=== PATIENT | male | born 1965 | race Caucasian/White ===

== ENCOUNTER 2023-07-05 08:04 | Outpatient (CLI) | payer OTHER, SELFPAY ==
--- OUTSIDE RECORDS SUMMARY | 2023-07-06 06:48 | XMS_ITS | Clinical Summary ---
Author Name Unknown Organization [facility] Address [address] [place] [address] Care Team Providers Care Director Of Customer Acquisition Name Role Phone Found, No Pcp MD Primary Care Provider Unavailab le Source Comments You are receiving this document as you are listed as the primary care provider,follow-up provider, or the patient has been referred to you for consultation.This is in compliance with the Medicare and[facility] EHR Incentive Program,which states Providers who transition their patient to another setting of careor provider of care or refers their patient to another provider of care shouldprovide summary care record for each transition of care or referral. thesweetlink Allergies Active Allergy Reactions Criticality Noted Date Comments Adhesive Other, see comments 07/24/2016 Blisters Medications Medication Sig Dispensed Refills Start Date End Date Status unknown medication Indications: PN: 0 07/18/2009 Active unknown medication Indications: PN: 0 07/31/2009 Active acetaminophen (TYLENOL) 500 MG tabletIndications:P ain Take 2 Tabs by mouth three times a day. Maximum acetaminophen dose is 4000 mg in 24 hours Indications: Pain 100 Tab 2 07/25/2016 Active Additional Information Patient not taking.Reported on 10/26/2016 sennosides-docusate sodium (SENNA-S,SENNA PLUS) 8.6-50 MG per tabletIndications:C onstipation Take 1 Tab by mouth two times a day. Indications: Constipation 90 Tab 0 07/25/2016 Active Additional Information Patient not taking.Reported on 10/26/2016 Active Problems Problem Noted Date Diagnosed Date Closed displaced fracture of shaft of right clav icle 07/22/2016 Resolved Problems Problem Noted Date Diagnosed Date Resolved Date CAREPLAN: [facility] 08/11/2016 09/14/2016 Overview: Background: Engaged in Complex Case Management: Khalida Patel RN, BAN [phone] Goals/Recommendations: Immunizations Name Administration Dates Next Due HepA Adult (19+ yrs) 04/14/2007,10/19/2006 HepB Adult (Engerix-B, 20+ y rs, 3 dose series) 04/14/2007,11/23/2006,10/19/2006 Influenza, Unspecified Formulation 05/17/2013 Td (7+ yrs) 07/12/1997 Tdap 10/19/2006 Family History Medical History Relation Name Comments COPD Father Other Father CHF/MM Cataract Mother Relation Name Status Comments Father Alive Mother Alive Social History Tobacco Use Types Packs/Day Years Used Date Smoking Tobacco: Never Smokeless Tobacco: Never Alcohol Use Standard Drinks/Week Comments Yes 3 (1 standard drink = 0.6 oz pur e alcohol) Sex and Gender Information Value Date Recorded Sex Assigned at Not on file Gender Identity Not on file Sexual Orientation Not on file Last Filed Vital Signs Vital Sign Reading Time Taken Comments Blood Pressure 144/95 05/09/2018 9:13 AM EMERGENCY MEDICINE notified pt and MD about BP Pulse 78 05/09/2018 9:13 AM EMERGENCY MEDICINE Temperature 36.6 ??C (97.8 ??F) 07/25/2016 1 0:00 AM EMERGENCY MEDICINE Respiratory Rate 16 07/25/2016 10:0 0 AM EMERGENCY MEDICINE Oxygen Saturation 95% 07/25/2016 10: 00 AM EMERGENCY MEDICINE Inhaled Oxygen Concentration - - Weight 88.5 kg (195 lb) 08/31/2016 4:35 PM CDT Height 165.1 cm (5' 5) 08/31/2016 4:35 PM CDT Body Mass Index 32.45 08/31/2016 4:35 PM CDT Plan of Treatment Health Maintenance Due Date Last Done Comments Colon Cancer Screening Plan Due 1966 Hep C Screening (Preventive Services) 1966 PSA Screening Discussion 1966 COVID-19 Vaccine (#1) 1966 HIV Screening (Preventive Services) 1982 Adult Preventive Visit 1984 Cholesterol 2001 HepA (3 of 3 - Hep A Twinrix risk 3-dose series) 09/13/2007 04/14/2007, 04/14/2007, 10/19/2006, Additional history exists Zoster/Shingles (1 of 2) 2016 Influenza (#1) 2023 02/26/2020, /02/2017, 05/17/2013, Additional history exists DTaP/Tdap/Td (3 - Tdap) 10/13/2028 10/14/19 19, 10/19/2006, 07/12/1997 HepB Completed 04/14/2007, 11/12, 10/19/2006 Hib Aged Out No longer eligi ble based on patient's age to complete this topic IPV (Polio) Aged Out No longer eligi ble based on patient's age to complete this topic MCV4 Aged Out No longer eligi ble based on patient's age to complete this topic Pneumococcal Aged Out No longer eligi ble based on patient's age to complete this topic Medical Devices Implanted Type Area Political Science Faculty Member Device Identifier Shelf Expiration Date Model / Serial / Lot Bone Dbx Putty 1cc - [id number] Implanted:Qt y: 1 on 07/23/2016 by Jostin Tinoco MD at [facility] [employer] Right: SCAPULA Musculoskeletal [employer] Fnd 02/18/2018 [id number] / [id number] / Korin Variax Clavicle Decreased Curvature Plate Implanted:Qt y: 1 on 07/23/2016 by Jostin Tinoco MD at [facility] DEV[employer] Right: CLAVICLE [employer] [id number] / / Scr Lk Sftp T8 2.4x7 - [id number] Implanted:Qt y: 2 on 07/23/2016 by Jostin Tinoco MD at [facility] [employer] Right: SCAPULA J[employer]J DePuy Synthes - Trauma 212.807 / / Scr Lk Sftp T8 2.4x8 - [id number] Implanted:Qt y: 2 on 07/23/2016 by Jostin Tinoco MD at [facility] DEV[employer] Right: SCAPULA DePuy Synthes - Trauma 212.808 / / Scr Lk Sftp T8 2.7x10 - [id number] Implanted:Qt y: 2 on 07/23/2016 by Jostin Tinoco MD at [facility] [employer] J[employer]J DePuy Synthes - Trauma 202.210 / / Plt Lcp 2.0x52 7h - [id number] Implanted:Qt y: 1 on 07/23/2016 by Jostin Tinoco MD at [facility] [employer] J[employer]J DePuy Synthes - Trauma 247.347 / / Scr Bone T10 2.7x22 - [id number] Implanted:Qt y: 1 on 07/23/2016 by Jostin Tinoco MD at [facility] DEV[employer] Right: CLAVICLE [employer] [id number] / / Scr Bone T10 3.5x14 - [id number] Implanted:Qt y: 1 on 07/23/2016 by Jostin Tinoco MD at [facility] DEV[employer] Right: CLAVICLE [employer] [id number] / / Scr Bone T10 3.5x16 - [id number] Implanted:Qt y: 2 on 07/23/2016 by Jostin Tinoco MD at [facility] DEV[employer] Right: CLAVICLE [employer] [id number] / / Scr Bone T10 3.5x18 - [id number] Implanted:Qt y: 2 on 07/23/2016 by Jostin Tinoco MD at [facility] DEV[employer] Right: CLAVICLE [employer] [id number] / / Scr Bone T10 3.5x20 - [id number] Implanted:Qt y: 1 on 07/23/2016 by Jostin Tinoco MD at [facility] DEV[employer] Right: CLAVICLE [employer] [id number] / / Scr Variax Non Lk T10 3.5x28 - [id number] Implanted:Qt y: 1 on 07/23/2016 by Jostin Tinoco MD at [facility] DEV[employer] Right: SCAPULA [employer] [id number] / / Scr Variax Non Lk T10 3.5x38 - [id number] Implanted:Qt y: 1 on 07/23/2016 by Jostin Tinoco MD at [facility] DEV[employer] Right: SCAPULA [employer] [id number] / / Scr Variax Non Lk T10 3.5x40 - [id number] Implanted:Qt y: 1 on 07/23/2016 by Jostin Tinoco MD at [facility] DEV[employer] Right: SCAPULA [employer] [id number] / / Advance Directives Latest Code Status on File Code Status Date Activated Date Inactivated Comments Full Code 07/23/2016 3:53 PM 07/25/2016 5:53 PM Code Status History Code Status Date Activated Date Inactivated Comments Full Code 07/23/2016 6:22 AM 07/23/2016 3:53 PM Care Teams Director Of Customer Acquisition Relationship Specialty Start Date End Date Found, No Pcp, [address] [place] [address] PCP - General 07/22/16
--- OUTSIDE RECORDS SUMMARY | 2023-07-06 06:48 | XMS_ITS | Clinical Summary ---
Author Name Unknown Organization [facility] Address [place], [place] [address] Care Team Providers Care Director Media Name Role Phone Pollo Hyde MD Primary Care Provider Allergies Active Allergy Reactions Criticality Noted Date Comments Ciprofloxacin *Unknown 07/17/2019 Risk of ao rupture Medications Medication Sig Dispensed Refills Start Date End Date Status rosuvastatin (CRESTOR) 10 mg tablet Take 10 mg by mouth once daily. 0 04/25/2019 Active Coenzyme Q10 (CO Q-10) 10 mg cap Take 10 mg by mouth once daily. 0 Active [place]-3 Fatty Acids (FISH OIL) 500 mg capsule Take 1 capsule by mouth once daily. 0 07/17/2019 Active multivitamin (MVI) tablet Take 1 tablet by mouth once daily. 0 08/12/2020 Active Encounters Date Type Department Care Team Description 06/03/2023 Telephone [employer] [facility] [address] [facility] [address] [place] [address] Ty Goodman MD Medication Management from Last 3 Months Social History Tobacco Use Types Packs/Day Years Used Date Smoking Tobacco: Never Smokeless Tobacco: Never Alcohol Use Standard Drinks/Week Comments Yes 0 (1 standard drink = 0.6 oz pur e alcohol) 3-4 drinks per week Social Connections Answer Date Recorded Frequency of Communication with Friends and Fami ly Not on file 06/14/2021 Financial Resource Strain Answer Date R ecorded Difficulty of Paying Living Expenses Not on file 06/14/2021 Difficulty of Paying Living Expenses Not on file 06/14/2021 Sex and Gender Information Value Date Recorded Sex Assigned at Not on file Gender Identity Not on file Sexual Orientation Not on file Obstetrics History Last Filed Vital Signs Vital Sign Reading Time Taken Comments Blood Pressure 148/96 09/30/2021 9:08 AM CDT Pulse 68 09/30/2021 9:08 AM CDT Temperature - - Respiratory Rate - - Oxygen Saturation 98% 09/30/2021 9:08 AM CDT Inhaled Oxygen Concentration - - Weight 91.7 kg (202 lb 3.2 oz) 09/30/2021 9:08 A M CDT Height 165.1 cm (5' 5) 09/30/2021 9:08 AM CDT Body Mass Index 33.65 09/30/2021 9:08 AM CDT Plan of Treatment Upcoming Encounters Date Type Department Care Team (Late st Contact Info) Description 07/08/2023 7:30 AM DEICER FINISHER Appointment [facility] [address] [place] [address] 07/08/2023 8:30 AM DEICER FINISHER Office Visit [facility] [address] [facility] [address] [place] [phone] Ty Goodman MD [address] [facility] [address] [place], [place] [id number] Health Maintenance Due Date Last Done Comments Tdap 1977 Depression screening for age 12+ 1978 HIV for age 15-65 1981 Hepatitis C screening for age 18-79 1984 Tetanus booster 1986 Colonoscopy through age 75 2011 Lipids for age 45-75 2011 Zoster (shingles) series for age 50+ (1 of 2) 2016 BMI (ht and wt on same day) for age 18+ 09/30/2022 09/30/2021, 08/12/2020, 07/17/2019, Additional history exists COVID-19 vaccine series (2022- season) 2023 04/16/2021, 09/21/2020, 08/31/2020 Influenza for age 50-64 02/12/2023 Pneumococcal series for age 6-64 Aged Out No longer eligible based on patient's age to complete this topic Goals Goal Patient Goal Type Associated Problems Recent Progress Patient-Stated? Author BLOOD PRESSURE - Maintains BP less than 130/80 Blood Pressure No Mayur Alford BLOOD PRESSURE - Maintains BP less than 140/90 Blood Pressure No Mayur Alford Care Teams Director Media Relationship Specialty Start Date End Date Pollo Hyde MD [address] [place] [address] PCP - General Family Practice 05/26/19
--- OUTSIDE RECORDS SUMMARY | 2023-07-06 06:48 | XMS_ITS | Encounter Summary ---
Author Name Unknown Organization [facility] Address [address] [place] [address] Care Team Providers Care Education Managers Name Role Phone Found, No Pcp Primary Care Provider Unavailab le Encounter Details Date Type Department Care Team Description 04/28/2018 Correspondence [facility] Radiology [address] [place] [address] Radiology, Provider MRI SAFETY SHEET AND COMPATIBILITY FORM Social History Tobacco Use Types Packs/Day Years Used Date Smoking Tobacco: Never Smokeless Tobacco: Never Alcohol Use Standard Drinks/Week Comments Yes 3 (1 standard drink = 0.6 oz pur e alcohol) Sex and Gender Information Value Date Recorded Sex Assigned at Not on file Gender Identity Not on file Sexual Orientation Not on file documented as of this encounter Plan of Treatment Not on file documented as of this encounter Visit Diagnoses Not on filedocumented in this encounter Additional Health Concerns Infection Onset Date Last Indicated Resolved Time R/O COVID19 12/09/2019 12/09/2019 12/10/2019 3:50 AM CDT documented as of this encounter Care Teams Education Managers Relationship Specialty Start Date End Date Found, No Pcp, [address] [place] [address] PCP - General 07/22/16 documented as of this encounter
--- OUTSIDE RECORDS SUMMARY | 2023-07-06 06:48 | XMS_ITS | Referral Summary ---
Author Name Unknown Organization [facility] Address [address] [place] [address] Care Team Providers Care Snipper Name Role Phone [facility]- Primary Care Provider Allergies Active Allergy Reactions Criticality Noted Date Comments Adhesive Tape 04/28/2019 Bees Rash Low 01/04/2016 No Known Drug Allergy 07/15/2007 Medications Medication Sig Dispensed Refills Start Date End Date Status tadalafil (CIALIS) 10 MG tabletIndications: ED (erectile dysfunction) Take 1 tablet by mouth 30 minutes prior to intercourse 10 tablet 3 01/29/2015 Active albuterol (PROAIR HFA, PROVENTIL HFA, VENTOLIN HFA) 108 (90 BASE) MCG/ACT inhalerIndications :Viral URI with cough Inhale 2 puffs into the lungs every 4 hours as needed 1 Inhaler 1 07/19/2015 Active oseltamivir (TAMIFLU) 75 MG capsuleIndications :Flu-like symptoms Take 1 capsule (75 mg) by mouth 2 times daily 10 capsule 0 08/23/2015 Active azithromycin (ZITHROMAX) 250 MG tabletIndications: Cough Two tablets first day, then one tablet daily for four days. 6 tablet 0 12/06/2015 Active EPINEPHrine (EPIPEN) 0.3 MG/0.3ML injection Inject 0.3 mLs (0.3 mg) into the muscle once as needed for anaphylaxis 0.6 mL 0 01/04/2016 Active predniSONE (DELTASONE) 20 MG tablet Take two tablets (= 40mg) each day for 5 (five) days 10 tablet 0 01/05/2016 Active valACYclovir (VALTREX) 1000 mg tabletIndications: HSV (herpes simplex virus) infection,Recurren t HSV (herpes simplex virus) Take 1 tablet (1,000 mg) by mouth 3 times daily 21 tablet 1 03/05/2016 Active Active Problems Problem Noted Date Diagnosed Date Motion sickness 06/03/2012 Hyperlipidemia with target LDL less than 130 Overview: Diagnosis updated by automated process. Provider to review and confirm. Impotence of organic origin Resolved Problems Problem Noted Date Diagnosed Date Resolved Date Shingles 06/03/2012 07/19/2015 Shoulder injury 09/04/2009 07/19/2015 Overview: Torn labrum- right shoulder. Enthesopathy of hip region 05/17/2007 1 07/18/2006 Herpes zoster 10/18/2006 05/17/2013 Overview: Problem list name updated by automated process. Provider to review Immunizations Name Administration Dates Next Due HepB 11/23/2006 Influenza (IIV3) PF 05/22/2011,04/14/2007 Influenza Vaccine >6 months,quad, PF 05/17/2013 TDAP Vaccine (Adacel) 10/19/2006 Twinrix A/B 04/14/2007,10/19/2006 Typhoid Oral 10/19/2006 Social History Tobacco Use Types Packs/Day Years Used Date Smoking Tobacco: Never Smokeless Tobacco: Never Alcohol Use Standard Drinks/Week Comments Yes 0 (1 standard drink = 0.6 oz pur e alcohol) rarely Adolescent Education Answer Date Record ed Getting School Help Needed Not on file 03/21 Sex and Gender Information Value Date Recorded Sex Assigned at Not on file Gender Identity Not on file Sexual Orientation Not on file Last Filed Vital Signs Vital Sign Reading Time Taken Comments Blood Pressure 128/89 04/28/2019 12:15 PM RAMP BOSS Pulse 81 04/28/2019 12:15 PM RAMP BOSS Temperature 37.5 ??C (99.5 ??F) 04/28/2019 8:47 AM CS T Respiratory Rate 16 04/28/2019 8:47 AM RAMP BOSS Oxygen Saturation 100% 04/28/2019 12: 15 PM RAMP BOSS Inhaled Oxygen Concentration - - Weight 93.4 kg (205 lb 14.6 oz) 04/28/2019 8:47 AM RAMP BOSS Height 165.1 cm (5' 5) 04/28/2019 8:47 AM RAMP BOSS Body Mass Index 34.27 04/28/2019 8:47 AM RAMP BOSS Plan of Treatment Not on file Care Teams Snipper Relationship Specialty Start Date End Date [facility] [address] [place] [address] PCP - General 04/28/19
--- OUTSIDE RECORDS SUMMARY | 2023-07-06 06:48 | XMS_ITS | Encounter Summary ---
Author Name Unknown Organization [facility] Address [address] [place] [address] Care Team Providers Care Ferry Operator Name Role Phone Found, No Pcp Primary Care Provider Unavailab le Encounter Details Date Type Department Care Team Description 07/22/2016 Consent for Procedure/Treatment [facility] Department INFORMED CONSENT RECORD Social History Tobacco Use Types Packs/Day Years Used Date Smoking Tobacco: Never Alcohol Use Standard Drinks/Week Comments [...] documented as of this encounter Care Teams Ferry Operator Relationship Specialty Start Date End Date Found, No Pcp, [address] [place] [address] PCP - General 07/22/16 documented as of this encounter
--- OUTSIDE RECORDS SUMMARY | 2023-07-06 06:48 | XMS_ITS | Encounter Summary ---
Author Name Unknown Organization [facility] Address [address] [place] [address] Care Team Providers Care Spindle Tester Name Role Phone Found, No Pcp Primary [...] documented as of this encounter Care Teams Spindle Tester Relationship Specialty Start Date End Date Found, No Pcp, [address] [place] [address] PCP - General 07/22/16 documented as of this encounter
--- OUTSIDE RECORDS SUMMARY | 2023-07-06 06:48 | XMS_ITS | Encounter Summary ---
Author Name Unknown Organization [facility] Address [address] [place] [address] Care Team Providers Care Stucco Applicator Name Role Phone Found, No Pcp Primary Care Provider Unavailab le Encounter Details Date Type Department Care Team Description 04/05/2017 Correspondence External to External, Provider No address [place], [place] [id number] [place] [address] Social History Tobacco Use Types Packs/Day Years [...] documented as of this encounter Care Teams Stucco Applicator Relationship Specialty Start Date End Date Found, No PcpMD [address] [place] [address] PCP - General 07/22/16 documented as of this encounter
--- OUTSIDE RECORDS SUMMARY | 2023-07-06 06:48 | XMS_ITS | Clinical Summary ---
Author Name Unknown Organization [facility] Address [address] [place] [address] Care Team Providers Care Qc Chemist Name Role Phone [facility]- Primary Care Provider Allergies Active Allergy [...] 10/19/2006 Twinrix A/B 04/14/2007,10/19/2006 Typhoid Oral 10/19/2006 Family History Medical History Relation Comments Lipids Brother Cancer Father multiple myeloma Heart Disease Father TRIPLE BYPASS Hypertension Father Lipids Father Cancer Maternal Grandmother Bone Alzheimer Disease Paternal Grandfather had previ ous TBI Cancer Paternal Grandmother LIVER? Relation Status Comments Brother Father Alive Maternal Grandfather Maternal Grandmother Mother Alive Paternal Grandfather Paternal Grandmother Social History Tobacco Use Types Packs/Day Years [...] Comments Blood Pressure 128/89 04/28/2019 12:15 PM FOREPART REDUCER Pulse 81 04/28/2019 12:15 PM FOREPART REDUCER Temperature 37.5 ??C (99.5 ??F) 04/28/2019 8:47 AM CS T Respiratory Rate 16 04/28/2019 8:47 AM FOREPART REDUCER Oxygen Saturation 100% 04/28/2019 12: 15 PM FOREPART REDUCER Inhaled Oxygen Concentration - - Weight 93.4 kg (205 lb 14.6 oz) 04/28/2019 8:47 AM FOREPART REDUCER Height 165.1 cm (5' 5) 04/28/2019 8:47 AM FOREPART REDUCER Body Mass Index 34.27 04/28/2019 8:47 AM FOREPART REDUCER Plan of Treatment Health Maintenance Due Date Last Done Comments ADVANCE CARE PLANNING 1966 ANNUAL REVIEW OF HM ORDERS 1966 CT COLONOGRAPHY 1966 FIT 1966 FLEX SIG 1966 sDNA (Cologuard) 1966 COVID-19 Vaccine (#1) 1966 COLONOSCOPY 1976 COLORECTAL CANCER SCREENING 1976 HEPATITIS C SCREENING 1984 YEARLY PREVENTIVE VISIT 09/04/2010 09/04/2009 LIPID 09/04/2014 09/04/2009 ZOSTER IMMUNIZATION (1 of 2) 2016 DTAP/TDAP/TD IMMUNIZATION (2 - Td or Tdap) 10/19/2016 10/19/2006, 07/12/1997 INFLUENZA VACCINE (#1) 2023 3, 05/17/2013, 05/22/2011, Additional history exists PHQ-2 (once per calendar year) 2023 HIV SCREENING Completed 12/14/2006 HEPATITIS B IMMUNIZATION Completed 007, 04/14/2007, 11/23/2006, Additional history exists HPV IMMUNIZATION Aged Out No longer e ligible based on patient's age to complete this topic IPV IMMUNIZATION Aged Out No longer e ligible based on patient's age to complete this topic MENINGITIS IMMUNIZATION Aged Out No l onger eligible based on patient's age to complete this topic Pneumococcal Vaccine: Pediatrics (0 to 5 Years) and At-Risk Patients (6 to 64 Years) Aged Out No longer eligible based on patient's age to complete this topic RSV MONOCLONAL ANTIBODY Aged Out No l onger eligible based on patient's age to complete this topic Care Teams Qc Chemist Relationship Specialty Start Date End Date [facility]- [address] [place] [address] PCP - General 04/28/19
--- OUTSIDE RECORDS SUMMARY | 2023-07-06 06:48 | XMS_ITS | Encounter Summary ---
Author Name Unknown Organization [facility] Address [address] [place] [address] Care Team Providers Care Lead Infrastructure Architect Name Role Phone Found, No Pcp Primary Care Provider Unavailab le Encounter Details Date Type Department Care Team Description 07/05/2016 Scanned History External to Transferred Record, Provider [facility] Social History Tobacco Use Types Packs/Day Years Used Date Smoking Tobacco: Never Sex and Gender Information Value Date Recorded [...] documented as of this encounter Care Teams Lead Infrastructure Architect Relationship Specialty Start Date End Date Found, No Pcp, [address] [place] [address] PCP - General 07/22/16 documented as of this encounter
--- OUTSIDE RECORDS SUMMARY | 2023-07-06 06:48 | XMS_ITS | Encounter Summary ---
Author Name Unknown Organization [facility] Address [address] [place] [address] Care Team Providers Care Managing Director Name Role Phone Found, No Pcp Primary Care Provider Unavailab le Encounter Details Date Type Department Care Team Description 07/05/2016 Scanned History External to Transferred Record, Provider [facility] Social History Tobacco Use Types [...] documented as of this encounter Care Teams Managing Director Relationship Specialty Start Date End Date Found, No Pcp, [address] [place] [address] PCP - General 07/22/16 documented as of this encounter
== END 2023-07-05 08:05 | disposition home or self-care (01) ==
LOC: NFLDREF 07-06 06:46
PROVIDERS: PCP Family Medicine; Referring Provider Family Medicine; Visit Provider Family Medicine
DX: E78.00 Pure hypercholesterolemia, unspecified (principal); Z12.5 Encounter for screening for malignant neoplasm of prostate; Z13.1 Encounter for screening for diabetes mellitus
CPT/HCPCS: 80053; 80061; G0103